=== PATIENT | male | born 2000 | race Caucasian/White ===

== ENCOUNTER 2025-09-01 15:24 | Emergency (ER) | payer OTHER ==
[2025-09-01] MEDS ORDERED: Diphtheria,Pertussis(Acell),Tetanus Vaccine 0.5 ML Syringe IM ONE (16:55)
== END 2025-09-01 17:33 | disposition home or self-care (01) ==
LOC: JD.ED 15:24
DX: S91.011A Laceration without foreign body, right ankle, initial encounter (principal); Z91.018 Allergy to other foods; Z79.899 Other long term (current) drug therapy; W25.XXXA Contact with sharp glass, initial encounter; Y93.89 Activity, other specified; Y99.0 Civilian activity done for income or pay
CPT/HCPCS: 12001; 99282; 99283